=== PATIENT | male | born 1980 | race Caucasian/White ===

== ENCOUNTER 2022-09-27 16:27 | Emergency (ER) | payer MEDICAID ==
[~2022-09-27] VITALS: Ht 170.2 cm; Wt 90.7 kg
[2022-09-27 16:56] VITALS: BP_SYST 130; PULSE 117; RESP 16; TEMP 98.1; O2SAT 99
--- NOTE | 2022-09-27 19:24 | NUR ---
MADE CALL OUT TO ER LOBBY AND NO ANSWER X1 NOT SEEN BY ER PHYSICIAN
== END 2022-09-27 19:24 | disposition left against medical advice (07) ==
LOC: SED 16:27
DX: M54.50 Low back pain, unspecified (principal); Z53.21 Procedure and treatment not carried out due to patient leaving prior to being seen by health care provider
CPT/HCPCS: 99281